=== PATIENT | male | born 1990 | race Caucasian/White ===

== ENCOUNTER 2022-12-29 21:39 | Emergency (ER) | payer MEDICAID ==
[~2022-12-29] VITALS: Ht 165.1 cm; Wt 97.1 kg
[2022-12-29 22:59] LABS: AMPHETAMINES, UR POSITIVE (NEGATIVE); BARBITURATES, UR NEGATIVE (NEGATIVE); BENZODIAZEPINES, UR NEGATIVE (NEGATIVE); BUPRENORPHINE,UR NEGATIVE (NEGATIVE); COCAINE, UR NEGATIVE (NEGATIVE); MARIJUANA (THC), UR NEGATIVE (NEGATIVE); MDMA, UR NEGATIVE (NEGATIVE); METHADONE, UR NEGATIVE (NEGATIVE); METHAMPHETAMINE, UR POSITIVE (NEGATIVE); OPIATES, UR NEGATIVE (NEGATIVE); OXYCODONE, UR NEGATIVE (NEGATIVE); PHENCYCLIDINE, UR NEGATIVE (NEGATIVE); TRICYCLIC ANTIDEPRESSANT, UR NEGATIVE (NEGATIVE)
[2022-12-30 02:36] LABS: BASOPHILS 0.3 % (0-2); HEMATOCRIT 42.3 % (35.0-50.0); HEMOGLOBIN 14.2 g/dL (12.0-18.0); LYMPHOCYTES 24.6 % (24-44); MCH 28.8 (27-36); MCHC 33.5 g/dl (30-36); MONOCYTES 7.5 % (0-12); NEUTROPHILS 66.6 % (39-80); PLATELET COUNT 288 K/uL (140-440); RBC 4.92 M/ul (4.3-5.7); RDW 13.7 (10.5-15.0)
[2022-12-30 02:52] LABS: ACETAMINOPHEN 0 ug/mL (10-30); ALBUMIN 3.8 g/dL (3.4-5.0); ALBUMIN/GLOBULIN RATIO 1.09 (1.1-2.4); ALCOHOL, MEDICAL <3 ng/dL (<3); ALKALINE PHOSPHATASE 82 U/L (46-116); ALT (SGPT) 46 U/L (14-59); ANION GAP 13.7 (7-21); AST (SGOT) 27 U/L (15-37); BILIRUBIN, TOTAL 0.5 ng/dL (0.2-1.0); BUN/CREATININE RATIO 3.48 (6.0-28.6); CALCIUM 8.5 mg/dL (8.5-10.1); CARBON DIOXIDE 25 mmol/L (21-32); CHLORIDE 101 mmol/L (98-107); CREATININE, SERUM 0.86 mg/dL (0.70-1.30); GLOMERULAR FILTRATION RATE,EST 117 mL/min (>60); POTASSIUM 2.7 mmol/L (3.5-5.1); PROTEIN, TOTAL 7.3 g/dL (6.4-8.2); TSH, 3RD GENERATION 1.867 uIU/mL (0.358-3.740); UREA NITROGEN 3 mg/dL (7-18)
[2022-12-30 11:15] VITALS: BP 159/118
== END 2022-12-30 11:15 | disposition home or self-care (01) ==
LOC: ED 21:39
PROVIDERS: Emergency Medicine
DX: F15.10 Other stimulant abuse, uncomplicated (principal); E87.6 Hypokalemia; Z88.8 Allergy status to other drugs, medicaments and biological substances
CPT/HCPCS: 36415; 70450; 80053; 84443; 85025; 96374; 99284-25; A9270; G0480; J2060